=== PATIENT | female | born 1960 | race Caucasian/White ===

== ENCOUNTER 2016-09-21 14:47 | Emergency (ER) | payer BC ==
[~2016-09-21] VITALS: Wt 127.5 kg
[~2016-09-21 14:47] MED LIST: ATIVAN1 MG PO; CELEXA40 MG PO; CITALOPRAM HYDR20 MG PO; HYDROCODONE BIT1 T11 PO; OXYCODONE5 M1 PO
[2016-09-21] MEDS ORDERED: NAPROSYN500 MG PO ×2 (16:32→16:49)
== END 2016-09-21 16:37 | disposition home or self-care (01) ==
LOC: ED 14:47
DX: S93.402A Sprain of unspecified ligament of left ankle, initial encounter (principal); Z88.1 Allergy status to other antibiotic agents; Z88.6 Allergy status to analgesic agent; W50.0XXA Accidental hit or strike by another person, initial encounter; Y93.89 Activity, other specified; Y92.9 Unspecified place or not applicable; Y99.9 Unspecified external cause status

== ENCOUNTER 2017-09-03 23:31 | Emergency (ER) | payer OTHER ==
[~2017-09-03] VITALS: Wt 127.0 kg
[~2017-09-03 23:31] MED LIST changes: +NAPROSYN500 MG PO
== END 2017-09-04 00:46 | disposition home or self-care (01) ==
LOC: ED 23:31
DX: S69.91XA Unspecified injury of right wrist, hand and finger(s), initial encounter (principal); Z88.1 Allergy status to other antibiotic agents; Z88.6 Allergy status to analgesic agent; Z79.899 Other long term (current) drug therapy; X58.XXXA Exposure to other specified factors, initial encounter; Y93.89 Activity, other specified; Y92.89 Other specified places as the place of occurrence of the external cause; Y99.8 Other external cause status

== ENCOUNTER 2018-03-08 23:26 | Emergency (ER) | payer OTHER ==
[~2018-03-08] VITALS: Ht 177.8 cm
[2018-03-09] MEDS ORDERED: EC NAPROSYN500 MG PO (00:12)
== END 2018-03-09 00:39 | disposition home or self-care (01) ==
LOC: ED 23:26
DX: G57.61 Lesion of plantar nerve, right lower limb (principal); I10 Essential (primary) hypertension; Z88.1 Allergy status to other antibiotic agents; Z88.5 Allergy status to narcotic agent; Z88.6 Allergy status to analgesic agent; Z79.899 Other long term (current) drug therapy; W00.2XXA Other fall from one level to another due to ice and snow, initial encounter; Y93.89 Activity, other specified; Y92.520 Airport as the place of occurrence of the external cause; Y99.0 Civilian activity done for income or pay

== ENCOUNTER 2018-08-16 03:06 | Emergency (ER) | payer OTHER, MEDICAID ==
[~2018-08-16] VITALS: Ht 177.8 cm; Wt 127.0 kg
[~2018-08-16 03:06] MED LIST changes: +EC NAPROSYN500 MG PO
[2018-08-16] MEDS ORDERED: PREDNISONE20 M1 PO ×2 (04:24→04:31)
[2018-08-16] MEDS ORDERED: AMOXICILLIN500 M2 PO ×2 (04:24→04:31)
== END 2018-08-16 04:45 | disposition home or self-care (01) ==
LOC: ED 03:06
DX: J20.9 Acute bronchitis, unspecified (principal); I10 Essential (primary) hypertension; M13.861 Other specified arthritis, right knee; Z79.899 Other long term (current) drug therapy; Z88.1 Allergy status to other antibiotic agents; Z88.6 Allergy status to analgesic agent

== ENCOUNTER 2018-10-10 01:49 | Inpatient (IN) | payer OTHER, MEDICAID ==
[2018-10-10] VITALS (7 sets, daily range): BP systolic 112–138; BP diastolic 58–76
[~2018-10-10] VITALS: Ht 175.3 cm; Wt 133.4 kg
--- NOTE | ~2018-10-10 | EKG ---
[place], [place] ELECTROCARDIOGRAM REPORT NAME: CINDY SAENZ UNIT #: [id number] ROOM: 511 DOCTOR: BELL DRAFT REPORT BIRTHDATE: [birth year] [facility] Test Date: 2018-10-10 Test Time: 04:48:05 Pat Name: CINDY SAENZ Department: Room: 511 Gender: F Director Diabetes: Harpreet Quijano : 1960 Requested By: KRISTOPHER GARZA Order Number: [id number] Reading MD: Brandon Muhammad MD Measurements Intervals [place] Rate: 70 P: 73 [place]: 180 QRS: 37 QRSD: 103 T: 23 QT: 418 QTc: 452 Interpretive Statements Sinus rhythm Possible anteroseptal infarct, old Electronically Signed On 10-11-2018 7:57:43 PDT by Brandon Muhammad MD CM:EKGRPT:ELECTROCARDIOGRAM REPORT [id number] KRISTOPHER BARCENAS DRAFT REPORT KRISTOPHER GARZA DO
--- NOTE | ~2018-10-10 | EKG ---
[place], [place] ELECTROCARDIOGRAM REPORT NAME: CINDY SAENZ UNIT #: [id number] ROOM: 511 DOCTOR: BELL DRAFT REPORT BIRTHDATE: [birth year] [facility] Test Date: 2018-10-10 Test Time: 01:55:04 Pat Name: CINDY SAENZ Department: Room: 511 Gender: F Solar Designer/Installer: Harpreet Quijano : 1960 Requested By: KRISTOPHER GARZA Order Number: [id number] Reading MD: Brandon Muhammad MD Measurements Intervals [place] Rate: 68 P: 51 [place]: 176 QRS: 32 QRSD: 101 T: 21 QT: 410 QTc: 437 Interpretive Statements Sinus rhythm Low voltage, precordial leads Probable anteroseptal infarct, old Electronically Signed On 10-11-2018 4:26:48 PDT by Brandon Muhammad MD CM:EKGRPT:ELECTROCARDIOGRAM REPORT [id number] KRISTOPHER BARCENAS DRAFT REPORT KRISTOPHER GARZA DO
--- NOTE | ~2018-10-10 | EKG ---
[place], [place] ELECTROCARDIOGRAM REPORT NAME: CINDY SAENZ UNIT #: [id number] ROOM: 511 DOCTOR: BELL DRAFT REPORT BIRTHDATE: [birth year] [facility] Test Date: 2018-10-10 Test Time: 12:42:07 Pat Name: CINDY SAENZ Department: Room: 511 Gender: F Cage Cashier: : 1960 Requested By: KRISTOPHER GARZA Order Number: [id number] Reading MD: Brandon Muhammad MD Measurements Intervals [place] Rate: 80 P: 65 [place]: 190 QRS: 37 QRSD: 106 T: 26 QT: 410 QTc: 473 Interpretive Statements Sinus rhythm Low voltage, precordial leads Probable anteroseptal infarct, old Electronically Signed On 10-11-2018 8:07:57 PDT by Brandon Muhammad MD CM:EKGRPT:ELECTROCARDIOGRAM REPORT [id number] KRISTOPHER BARCENAS DRAFT REPORT KRISTOPHER GARZA DO
--- NOTE | ~2018-10-10 | CON ---
[place], [place] REPORT OF CONSULTATION NAME: CINDY SAENZ UNIT #: [id number] ROOM: 511 DOCTOR: CATHY TIMMONS BIRTHDATE: [birth year] DOS: 10/10/2018 REQUESTING PHYSICIAN: Dr. Dontae Anne. REASON FOR CONSULTATION: Chest pain. HISTORY OF PRESENT ILLNESS: The patient is a 58-year-old female with a history of diabetes and hyperlipidemia, who presents for evaluation of chest pain. States last week, she had a very brief episode of sharp left-sided chest pain that lasted only a couple of "milliseconds" and went away. Nothing in the interim and then yesterday she began again having similar episodes, not brought on by anything in particular, that was sharp, lasted a couple of seconds and resolved spontaneously. They were happening more frequently throughout the day, so because of her age and history, she wanted to get evaluated. There is no radiation. There were no associated symptoms. 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 She walks about 10 miles per shift. She does not seem to get the pain when she is exerting herself. She has had no prior cardiac issues or cardiac evaluation. Three sets of troponins were negative. EKG showed no evidence of ischemic changes. She is scheduled for an exercise treadmill test. REVIEW OF SYSTEMS: Negative except as described above. The patient states that she previously weighed greater than 500 pounds and has lost quite a bit of weight on her own. PAST MEDICAL HISTORY: Diabetes, hyperlipidemia, obesity and neuropathy. PAST SURGICAL HISTORY: She has had multiple rotator cuff surgeries. SOCIAL HISTORY: She is a nonsmoker. Drinks alcohol a couple times a year. No drug use. 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 FAMILY HISTORY: No history of premature coronary artery disease. ALLERGIES: CODEINE, AZITHROMYCIN, TRAMADOL. HOME MEDICATIONS: Include atorvastatin 10 mg daily, metformin 750 mg daily, gabapentin, citalopram and vitamin D3. PHYSICAL EXAMINATION: VITAL SIGNS: Temperature 97.7, pulse 75, respirations 18, blood pressure 127/68, saturating 95% on room air. GENERAL: She is a middle-aged overweight female who is up walking about the room, in no distress. ENT: Moist mucous membranes. NECK: Supple. JVP normal. No carotid bruits. RESPIRATORY: Lungs are clear. CARDIOVASCULAR: Regular rhythm with normal rate. There are no murmurs. ABDOMEN: Rotund. Positive bowel sounds. Soft, nontender. EXTREMITIES: Warm and well perfused. There is no edema. Moves all [place], [place] REPORT OF CONSULTATION NAME: CINDY SAENZ UNIT #: [id number] ROOM: 511 DOCTOR: CATHY TIMMONS BIRTHDATE: [birth year] extremities. SKIN: No lesions or rashes. NEUROLOGICAL: Nonfocal. LABORATORY DATA: Hemoglobin 14.6, platelets 169, potassium 4.0, creatinine 0.75. Three sets of troponin is less than 0.015. Chest x-ray was negative for any acute process. EKG shows sinus rhythm with a rate of 68 beats per minute with normal axis, normal intervals. Possible old anteroseptal infarct noted. Serial EKG showed no changes. IMPRESSION: 1. Atypical chest pain. 2. Diabetes. 3. Obesity. 4. Hyperlipidemia. RECOMMENDATIONS: 1. No evidence of acute coronary syndrome. Chest pain is somewhat atypical, may be musculoskeletal related to her work. 2. Stress testing is reasonable. 3. Continue present medications. 4. Further recommendations pending outcome of stress test. Thank you for the consultation. Dr. CATHY TIMMONS MD CM:CONSTR:REPORT OF CONSULTATION [id number] 10/10/18 0904 interface
--- NOTE | ~2018-10-10 | ST ---
[place], [place] EXERCISE STRESS TEST REPORT NAME: CINDY SAENZ UNIT #: [id number] ROOM: 511 DOCTOR: CATHY TIMMONS BIRTHDATE: [birth year] DOS: 10/10/2018 INDICATION: Chest pain. PROTOCOL: Exercise treadmill test, [place] protocol. Baseline EKG showed normal sinus rhythm with PAC and PVC with a rate of 64 beats per minute. Baseline blood pressure was 112/70. The patient exercised for a total of 4 minutes 11 seconds achieving a peak heart rate of 149, which is 91% of the predicted maximum. Peak blood pressure was 180/40. Total workload achieved 7 METs below average for age. The patient reported no chest pain. Stress EKG showed no evidence of ischemia and no arrhythmias were noted. Occasional PVCs were observed. IMPRESSION: 1. No evidence of ischemia on stress EKG. 2. Normal blood pressure response to exercise. 3. Normal heart rate recovery. 4. Below average functional capacity. Dr. CATHY TIMMONS MD CM:STRESS:EXERCISE STRESS TEST REPORT [id number] CATHY TIMMONS
[~2018-10-10 01:49] MED LIST changes: +AMOXICILLIN500 M2 PO; +PREDNISONE20 M1 PO
[2018-10-10 02:05] LABS: BASO % 0.5 % (0.0-1.0); EOS # 0.1 10*3/uL (0.0-0.4); EOS % 1.6 % (1.0-4.0); HEMATOCRIT 43.5 % (37.0-47.0); HEMOGLOBIN 14.6 g/dl (12.0-16.0); LYMPH # 2.4 10*3/uL (1.3-4.4); LYMPH % 29.2 % (27.0-41.0); MEAN CELL VOLUME 92.4 fl (81.0-99.0); MEAN CORPUSCULAR HGB CONC 33.6 g/dl (33.0-37.0); MEAN PLATELET VOLUME 11.5 fl (9.6-12.3); MONO # 0.7 10*3/uL (0.1-1.0); MONO % 8.5 % (3.0-9.0); NEUT # 4.9 10*3/uL (2.3-7.9); PLATELET COUNT AUTOMATED 169 10*3/uL (130-400); RED BLOOD COUNT 4.71 10*6/uL (4.10-5.10); RED CELL DISTRI WIDTH 12.9 % (0-14.5); WHITE BLOOD COUNT 8.2 10*3/uL (4.8-10.8)
--- NOTE | 2018-10-10 02:09 | NUR ---
DR GARZA IS AT THE BEDSIDE.
[2018-10-10 02:18] LABS: ACT PARTIAL THROMBO TIME 26.7 SECONDS (20.0-32.1); INTERNATIONAL NORM RATIO 0.9 (2.0-3.5)
[2018-10-10 02:23] LABS: ALBUMIN 3.8 gm/dl (3.1-4.5); ALKALINE PHOSPHATASE 82 U/L (45-117); BUN 17 mg/dl (7-24); CHLORIDE 107 mmol/L (98-107); CREATININE 0.75 mg/dL (0.55-1.02); SGOT/AST 25 IU/L (3-35); SGPT/ALT 32 U/L (12-78); SODIUM 140 mmol/L (136-145); TOTAL PROTEIN 7.1 gm/dL (6.4-8.2)
[2018-10-10 02:24] LABS: TROPONIN I < 0.015 ng/ml (<0.045)
--- NOTE | 2018-10-10 02:47 | NUR ---
UPDATED ON ADMISSION STATUS AND AWAITING ROOM ASSIGNMENT.
--- NOTE | 2018-10-10 02:49 | NUR ---
DR DELUCA IS AT THE BEDSIDE.
--- NOTE | 2018-10-10 03:05 | NUR ---
A 58 year old female, admitted to 5E, under the services of BARBARA Tucker DO with a diagnosis of CHEST PAIN. Chief complaint is CHEST PAIN. Patient arrived via stretcher from ER. Monitor applied. Initial assessment completed. Vital signs taken and recorded. BARBARA TUCKER DO notified of admission to the unit. Orders received. See assessment for past medical history, medications and allergies. Patient and/or family oriented to unit. visitation policy reviewed. Clothing/patient valuable form completed. PATRICK CARLOS
[2018-10-10] MEDS ORDERED: CITALOPRAM20 MG PO (03:30)
[2018-10-10] MEDS ORDERED: ATORVASTATIN CA10 M1 PO (03:30)
[2018-10-10] MEDS ORDERED: METFORMIN HYDR750 MG PO (03:30)
[2018-10-10] MEDS ORDERED: VITAMIN D50000 UNIT PO (03:33)
[2018-10-10] MEDS ORDERED: GABAPENTIN600 MG PO (03:35)
--- NOTE | 2018-10-10 03:40 | NUR ---
DR. DELUCA CONTACTED REGARDING ADMIT TO SERVICE ORDER AND INFORMED THAT MED REC IS UP TO DATE.
--- NOTE | 2018-10-10 03:59 | NUR ---
CARDIO CONSULT COMPLETE AT THIS TIME.
--- NOTE | 2018-10-10 10:10 | NUR ---
INFORMED CONSENT SIGNED FOR STANDARD STRESS TEST WITH DR. TIMMONS. RESTING EKG NSR, HR 69, BP 112/70. COMPLETED 4:11 OF A EDITH PROTOCOL STRESS TEST COMPLETING 1:11 STAGE II, 2.5 MPH/12% GRADE. PEAK HEART RATE OF 149 ACHIEVED WHICH IS 91% PREDICTED MAXIMUM AND A PEAK BP OF 180/40. TEST TERMINATED D/T FATIGUE. RARE PVC'S NOTED WITH NO ST CHANGES. HAS A FAIR EXERCISE TOLERANCE. LAST RECOVERY HR 84, BP 144/58. RETURNEF TO UNIT IN STABLE CONDITION. THIS IS A NEGATIVE STRESS TEST.
[2018-10-11] VITALS: BP 100/35
[2018-10-11 06:48] LABS: PHOSPHOROUS 3.3 mg/dL (2.5-4.9)
[2018-10-11 08:00] VITALS: BP 120/65
--- NOTE | 2018-10-11 11:17 | NUR ---
PATIENT DISCHARGED TO HOME.
--- NOTE | 2018-10-11 12:59 | NUR ---
Pond Supervisor in to talk to patient. Patient states lives at HOME with ALONE. There are OUTSIED steps in the home. Physician: YISEL RED Pharmacy: [facility] health services: NONE Patient's level of ADLs: INDEPENDENT Patient has working utilities: YES DME: C PAP Follow-up physician's appointment after d/c: WILL BE MADE BY HOSPITALIST NURSE DIRECTOR ON DISCHARGE Does patient want to access PORTAL?: NO Discharge plan PT LIVES AT HOME ALONE AND IS INDEPENDENT IN HER CARE. DENIES SHE WILL HAVE ANY NEEDS ON DISCAHRGE. WILL CONTINUE TO FOLLOW. STATES SHE WILL DRIVE HERSELF HOME. . ANA MARIA ROBLERO
== END 2018-10-11 11:17 | disposition home or self-care (01) | DRG 206 ==
LOC: ED 01:49 → 5E 02:38 → EDHOLD 02:38 → 5E 02:52
PROVIDERS: Student in an Organized Health Care Education/Training Program; ADMIT Internal Medicine
DX: M94.0 Chondrocostal junction syndrome [Tietze] (principal); E44.1 Mild protein-calorie malnutrition; Z68.41 Body mass index [BMI] 40.0-44.9, adult; E66.01 Morbid (severe) obesity due to excess calories; R07.89 Other chest pain; F41.9 Anxiety disorder, unspecified; I10 Essential (primary) hypertension; E11.65 Type 2 diabetes mellitus with hyperglycemia; E78.5 Hyperlipidemia, unspecified; E55.9 Vitamin D deficiency, unspecified; F32.9 Major depressive disorder, single episode, unspecified; E11.40 Type 2 diabetes mellitus with diabetic neuropathy, unspecified; Z82.49 Family history of ischemic heart disease and other diseases of the circulatory system; Z83.3 Family history of diabetes mellitus; Z80.7 Family history of other malignant neoplasms of lymphoid, hematopoietic and related tissues; Z88.1 Allergy status to other antibiotic agents; Z88.5 Allergy status to narcotic agent; Z88.6 Allergy status to analgesic agent; Z79.899 Other long term (current) drug therapy

== ENCOUNTER 2018-12-25 02:16 | Emergency (ER) | payer OTHER, MEDICAID ==
[~2018-12-25] VITALS: Ht 175.2 cm; Wt 127.0 kg
[~2018-12-25 02:16] MED LIST changes: +ATORVASTATIN CA10 M1 PO; +CITALOPRAM20 MG PO; +GABAPENTIN600 MG PO; +METFORMIN HYDR750 MG PO; +VITAMIN D50000 UNIT PO
== END 2018-12-25 03:55 | disposition home or self-care (01) ==
LOC: ED 02:16
DX: M17.12 Unilateral primary osteoarthritis, left knee (principal); E78.5 Hyperlipidemia, unspecified; I10 Essential (primary) hypertension; E66.01 Morbid (severe) obesity due to excess calories; E11.40 Type 2 diabetes mellitus with diabetic neuropathy, unspecified; Z88.1 Allergy status to other antibiotic agents; Z88.5 Allergy status to narcotic agent; Z88.8 Allergy status to other drugs, medicaments and biological substances; Z79.899 Other long term (current) drug therapy

== ENCOUNTER 2019-09-28 16:21 | Emergency (ER) | payer OTHER ==
[2019-09-28] MEDS ORDERED: IBU800 MG PO (18:33)
== END 2019-09-28 18:48 | disposition home or self-care (01) ==
LOC: ED 16:21
DX: S93.401A Sprain of unspecified ligament of right ankle, initial encounter (principal); M79.671 Pain in right foot; Z88.1 Allergy status to other antibiotic agents; Z88.6 Allergy status to analgesic agent; Z79.899 Other long term (current) drug therapy; X50.1XXA Overexertion from prolonged static or awkward postures, initial encounter; Y93.89 Activity, other specified; Y92.89 Other specified places as the place of occurrence of the external cause; Y99.8 Other external cause status

== ENCOUNTER 2021-05-24 23:32 | Emergency (ER) | payer SELFPAY ==
[~2021-05-24] VITALS: Ht 177.8 cm; Wt 136.1 kg
[~2021-05-24 23:32] MED LIST changes: +IBU800 MG PO
[2021-05-25 00:27] LABS: BILIRUBIN Negative (Negative); CLARITY Clear (Clear); COLOR Yellow (Yellow); GLUCOSE 1+ (Negative)
[2021-05-25 00:28] LABS: BLOOD 2+ (Negative); KETONE Negative (Negative); LEUKO ESTERASE Trace (Negative); NITRITE Negative (Negative); UROBILINOGEN 0.2 E.U./dl (0.0-1.0)
[2021-05-25 00:35] LABS: BACTERIA 2+; WBC 21-30 wbc/hpf (0-5)
[2021-05-25] MEDS ORDERED: CIPRO500 MG PO (00:41)
== END 2021-05-25 00:58 | disposition home or self-care (01) ==
LOC: ED 23:32
PROVIDERS: Internal Medicine
DX: N39.0 Urinary tract infection, site not specified (principal); Z88.1 Allergy status to other antibiotic agents; Z88.6 Allergy status to analgesic agent; Z79.899 Other long term (current) drug therapy

== ENCOUNTER 2021-09-04 10:54 | Emergency (ER) | payer OTHER ==
[~2021-09-04] VITALS: Ht 177.8 cm; Wt 124.3 kg
[~2021-09-04 10:54] MED LIST changes: +CIPRO500 MG PO
[2021-09-04] MEDS ORDERED: LISINOPRIL2.5 MG PO (11:39)
[2021-09-04] MEDS ORDERED: Motrin,Rufen800 MG PO ×2 (14:16→14:25)
== END 2021-09-04 14:25 | disposition home or self-care (01) ==
LOC: ED 10:54
DX: M76.61 Achilles tendinitis, right leg (principal); Z88.1 Allergy status to other antibiotic agents; Z88.8 Allergy status to other drugs, medicaments and biological substances; Z98.890 Other specified postprocedural states

== ENCOUNTER 2021-09-22 18:28 | Emergency (ER) | payer OTHER ==
[~2021-09-22] VITALS: Ht 177.8 cm; Wt 123.4 kg
[~2021-09-22 18:28] MED LIST changes: +LISINOPRIL2.5 MG PO; +Motrin,Rufen800 MG PO
[2021-09-22] MEDS ORDERED: CEPHALEXIN500 M1 PO (21:39)
[2021-09-22] MEDS ORDERED: HYDROCODONE-AC1 EAC1 PO (21:41)
== END 2021-09-22 21:48 | disposition home or self-care (01) ==
LOC: ED 18:28
DX: S62.637A Displaced fracture of distal phalanx of left little finger, initial encounter for closed fracture (principal); S61.317A Laceration without foreign body of left little finger with damage to nail, initial encounter; Z98.890 Other specified postprocedural states; Z79.899 Other long term (current) drug therapy; Z88.1 Allergy status to other antibiotic agents; Z88.6 Allergy status to analgesic agent; W23.0XXA Caught, crushed, jammed, or pinched between moving objects, initial encounter; Y93.89 Activity, other specified; Y92.69 Other specified industrial and construction area as the place of occurrence of the external cause; Y99.9 Unspecified external cause status

== ENCOUNTER → 2021-10-09 | Outpatient (CLI) | payer OTHER ==
[~2021-10-09] MED LIST changes: +CEPHALEXIN500 M1 PO; +HYDROCODONE-AC1 EAC1 PO
== END | disposition home or self-care (01) ==
LOC: ORTHO 00:42
PROVIDERS: ATTEND Orthopaedic Surgery
DX: S62.637B Displaced fracture of distal phalanx of left little finger, initial encounter for open fracture (principal); X58.XXXA Exposure to other specified factors, initial encounter; Y93.89 Activity, other specified; Y92.89 Other specified places as the place of occurrence of the external cause; Y99.8 Other external cause status

== ENCOUNTER → 2021-11-06 | Outpatient (CLI) | payer OTHER ==
[~2021-11-06] MED LIST changes: +TRULICITY1.5 MG/0.5 SC; +VITAMIN D310 MC1 PO; -VITAMIN D50000 UNIT PO
== END | disposition home or self-care (01) ==
LOC: ORTHO 01:00
PROVIDERS: ATTEND Orthopaedic Surgery
DX: S62.637B Displaced fracture of distal phalanx of left little finger, initial encounter for open fracture (principal); X58.XXXA Exposure to other specified factors, initial encounter; Y93.89 Activity, other specified; Y92.89 Other specified places as the place of occurrence of the external cause; Y99.8 Other external cause status

== ENCOUNTER → 2021-11-17 | Day surgery (SDC) | payer OTHER ==
[2021-11-13 14:03] LABS: BUN 12 mg/dl (7-24); CHLORIDE 107 mmol/L (98-107); CREATININE 0.73 mg/dL (0.55-1.02); POTASSIUM 4.3 mmol/L (3.5-5.1); SODIUM 136 mmol/L (136-145)
[2021-11-13 14:06] VITALS: BP 117/74
[~2021-11-17] VITALS: Ht 177.8 cm; Wt 127.0 kg
[~2021-11-17] MED LIST changes: +SEPTDS PO
[2021-11-17 07:00] VITALS: BP 116/55
[2021-11-17 09:05] VITALS: BP 110/80
[2021-11-17 09:20] VITALS: BP 107/77
[2021-11-17 09:34] VITALS: BP 123/75
[2021-11-18 11:07] LABS: ACID FAST SPEC PROCESSING Tissue Grinding (.)
== END | disposition home or self-care (01) ==
LOC: SDC 11-13 14:00
PROVIDERS: ATTEND Orthopaedic Surgery
DX: S62.637B Displaced fracture of distal phalanx of left little finger, initial encounter for open fracture (principal); M86.642 Other chronic osteomyelitis, left hand; F41.9 Anxiety disorder, unspecified; F32.9 Major depressive disorder, single episode, unspecified; I10 Essential (primary) hypertension; E78.00 Pure hypercholesterolemia, unspecified; E11.40 Type 2 diabetes mellitus with diabetic neuropathy, unspecified; E66.01 Morbid (severe) obesity due to excess calories; W23.0XXA Caught, crushed, jammed, or pinched between moving objects, initial encounter; Y93.89 Activity, other specified; Y92.89 Other specified places as the place of occurrence of the external cause; Y99.8 Other external cause status

== ENCOUNTER → 2022-04-01 | Day surgery (SDC) | payer OTHER ==
[2022-03-30 10:09] LABS: BUN 9 mg/dl (9-23); CHLORIDE 105 mmol/L (98-107); POTASSIUM 4.2 mmol/L (3.4-5.1)
[~2022-04-01] VITALS: Ht 177.8 cm; Wt 130.6 kg
[2022-04-01 07:34] VITALS: BP 127/77
[2022-04-01 08:07] VITALS: BP 93/52
[2022-04-01 08:22] VITALS: BP 102/67
[2022-04-01 08:36] VITALS: BP 107/62
== END | disposition home or self-care (01) ==
LOC: SDC 03-29 10:15
PROVIDERS: ATTEND Orthopaedic Surgery
DX: S62.637A Displaced fracture of distal phalanx of left little finger, initial encounter for closed fracture (principal); L60.0 Ingrowing nail; S67.197A Crushing injury of left little finger, initial encounter; S61.307A Unspecified open wound of left little finger with damage to nail, initial encounter; E11.9 Type 2 diabetes mellitus without complications; F41.9 Anxiety disorder, unspecified; Z88.1 Allergy status to other antibiotic agents; Z88.5 Allergy status to narcotic agent; Z88.8 Allergy status to other drugs, medicaments and biological substances; X58.XXXA Exposure to other specified factors, initial encounter; Y93.89 Activity, other specified; Y92.89 Other specified places as the place of occurrence of the external cause; Y99.8 Other external cause status

== ENCOUNTER → 2022-04-28 | Outpatient (CLI) | payer OTHER | END | disposition home or self-care (01) | LOC: MAMMO 01:40 | PROVIDERS: ATTEND Nurse Practitioner Family | DX: Z12.31 Encounter for screening mammogram for malignant neoplasm of breast (principal) ==

== ENCOUNTER → 2022-07-01 | Outpatient (CLI) | payer OTHER ==
[2022-07-01 09:39] LABS: BASO % 0.5 % (0.0-1.0); EOS # 0.3 10*3/uL (0.0-0.4); HEMATOCRIT 46.7 % (37.0-47.0); LYMPH # 2.1 10*3/uL (1.3-4.4); LYMPH % 32.1 % (27.0-41.0); MEAN CELL VOLUME 91.4 fl (81.0-99.0); MEAN CORPUSCULAR HGB 30.7 pg (27.0-31.0); MEAN CORPUSCULAR HGB CONC 33.6 g/dl (33.0-37.0); MONO # 0.6 10*3/uL (0.1-1.0); MONO % 9.1 % (3.0-9.0); NEUT # 3.5 10*3/uL (2.3-7.9); PLATELET COUNT AUTOMATED 172 10*3/uL (130-400); RED BLOOD COUNT 5.11 10*6/uL (4.10-5.10); WHITE BLOOD COUNT 6.5 10*3/uL (4.8-10.8)
[2022-07-01 10:25] LABS: ALKALINE PHOSPHATASE 70 U/L (46-116); BUN 12 mg/dl (9-23); CHLORIDE 102 mmol/L (98-107); CHOLESTEROL 191 mg/dL (<200); LDL CHOLESTEROL 125 mg/dL (9-159); POTASSIUM 3.5 mmol/L (3.4-5.1); SGPT/ALT 24 U/L (10-49); TOTAL PROTEIN 6.9 gm/dL (6.0-8.0); TRIGLYCERIDES 147 mg/dl (<150)
== END | disposition home or self-care (01) ==
LOC: LAB 08:56
PROVIDERS: ATTEND Nurse Practitioner Family
DX: E11.9 Type 2 diabetes mellitus without complications (principal); I15.2 Hypertension secondary to endocrine disorders; E55.9 Vitamin D deficiency, unspecified

== ENCOUNTER 2022-12-31 23:31 | Emergency (ER) | payer OTHER ==
[2023-01-01] MEDS ORDERED: PREDNISONE20 M1 PO (01:25)
== END 2023-01-01 01:43 | disposition home or self-care (01) ==
LOC: ED 23:31
DX: M79.672 Pain in left foot (principal); F32.A Depression, unspecified; F41.9 Anxiety disorder, unspecified; I10 Essential (primary) hypertension; E78.00 Pure hypercholesterolemia, unspecified; Z88.1 Allergy status to other antibiotic agents; Z88.5 Allergy status to narcotic agent; Z88.8 Allergy status to other drugs, medicaments and biological substances; Z98.890 Other specified postprocedural states

== ENCOUNTER → 2023-03-08 | Outpatient (CLI) | payer OTHER ==
[2023-03-08 11:01] LABS: BASO # 0.1 10*3/uL (0.0-0.1); EOS # 0.2 10*3/uL (0.0-0.4); EOS % 2.8 % (1.0-4.0); HEMATOCRIT 45.2 % (37.0-47.0); LYMPH # 2.4 10*3/uL (1.3-4.4); LYMPH % 39.8 % (27.0-41.0); MEAN CELL VOLUME 90.9 fl (81.0-99.0); MEAN CORPUSCULAR HGB 30.2 pg (27.0-31.0); MEAN CORPUSCULAR HGB CONC 33.2 g/dl (33.0-37.0); MEAN PLATELET VOLUME 10.5 fl (9.6-12.3); MONO # 0.6 10*3/uL (0.1-1.0); MONO % 9.9 % (3.0-9.0); NEUT # 2.8 10*3/uL (2.3-7.9); NEUT % 46.3 % (47.0-73.0); PLATELET COUNT AUTOMATED 186 10*3/uL (130-400); RED BLOOD COUNT 4.97 10*6/uL (4.10-5.10); RED CELL DISTRI WIDTH 13.1 % (0-14.5); WHITE BLOOD COUNT 6.1 10*3/uL (4.8-10.8)
[2023-03-08 11:22] LABS: ALKALINE PHOSPHATASE 68 U/L (46-116); BUN 7 mg/dl (9-23); CHLORIDE 106 mmol/L (98-107); CHOLESTEROL 138 mg/dL (<200); LDL CHOLESTEROL 71 mg/dL (9-159); POTASSIUM 3.8 mmol/L (3.4-5.1); SGPT/ALT 23 U/L (5-49); TOTAL PROTEIN 6.6 gm/dL (6.0-8.0); TRIGLYCERIDES 117 mg/dl (<150)
== END | disposition home or self-care (01) ==
LOC: LAB 01:20
PROVIDERS: ATTEND Nurse Practitioner Family
DX: E11.9 Type 2 diabetes mellitus without complications (principal); I15.2 Hypertension secondary to endocrine disorders; E78.00 Pure hypercholesterolemia, unspecified

== ENCOUNTER 2023-05-29 23:36 | Emergency (ER) | payer OTHER ==
[~2023-05-29] VITALS: Ht 177.8 cm; Wt 117.0 kg
[2023-05-30] MEDS ORDERED: Ketorolac Tromethamine 30 MG/ML VIAL IM ONE (00:35)
[2023-05-30] MEDS ORDERED: METHOCARBAMOL 500 MG TAB PO ONE (00:35)
[2023-05-30] MEDS ORDERED: NAPROXEN250 MG PO (00:41)
[2023-05-30] MEDS ORDERED: METHOCARBAMOL500 M1 PO (00:41)
== END 2023-05-30 01:35 | disposition home or self-care (01) ==
LOC: ED 23:36
DX: S16.1XXA Strain of muscle, fascia and tendon at neck level, initial encounter (principal); F32.A Depression, unspecified; F41.9 Anxiety disorder, unspecified; I10 Essential (primary) hypertension; E78.00 Pure hypercholesterolemia, unspecified; Z88.1 Allergy status to other antibiotic agents; Z88.5 Allergy status to narcotic agent; Z88.8 Allergy status to other drugs, medicaments and biological substances; Z98.890 Other specified postprocedural states; X58.XXXA Exposure to other specified factors, initial encounter; Y93.89 Activity, other specified; Y92.89 Other specified places as the place of occurrence of the external cause; Y99.0 Civilian activity done for income or pay

== ENCOUNTER → 2023-06-25 | Outpatient (CLI) | payer OTHER ==
[~2023-06-25] MED LIST changes: +METHOCARBAMOL500 M1 PO; +NAPROXEN250 MG PO
[2023-06-25 10:19] LABS: BASO # 0.1 10*3/uL (0.0-0.1); EOS # 0.2 10*3/uL (0.0-0.4); EOS % 2.1 % (1.0-4.0); HEMATOCRIT 47.5 % (37.0-47.0); LYMPH # 2.1 10*3/uL (1.3-4.4); LYMPH % 29.4 % (27.0-41.0); MEAN CELL VOLUME 92.1 fl (81.0-99.0); MEAN CORPUSCULAR HGB 30.2 pg (27.0-31.0); MEAN CORPUSCULAR HGB CONC 32.8 g/dl (33.0-37.0); MEAN PLATELET VOLUME 10.7 fl (9.6-12.3); MONO # 0.7 10*3/uL (0.1-1.0); MONO % 9.3 % (3.0-9.0); NEUT # 4.2 10*3/uL (2.3-7.9); NEUT % 57.9 % (47.0-73.0); PLATELET COUNT AUTOMATED 183 10*3/uL (130-400); RED BLOOD COUNT 5.16 10*6/uL (4.10-5.10); RED CELL DISTRI WIDTH 13.1 % (0-14.5); WHITE BLOOD COUNT 7.2 10*3/uL (4.8-10.8)
[2023-06-25 10:28] LABS: URINE CREATININE RANDOM 88.89 mg/dL
[2023-06-25 10:42] LABS: ALKALINE PHOSPHATASE 90 U/L (46-116); BUN 15 mg/dl (9-23); CHLORIDE 109 mmol/L (98-107); CHOLESTEROL 184 mg/dL (<200); LDL CHOLESTEROL 103 mg/dL (9-159); POTASSIUM 4.2 mmol/L (3.4-5.1); SGPT/ALT 22 U/L (5-49); TOTAL PROTEIN 6.8 gm/dL (6.0-8.0); TRIGLYCERIDES 185 mg/dl (<150)
== END ==
LOC: LAB 10:02
PROVIDERS: ATTEND Nurse Practitioner Family
DX: I15.2 Hypertension secondary to endocrine disorders (principal); E78.00 Pure hypercholesterolemia, unspecified; E11.9 Type 2 diabetes mellitus without complications

== ENCOUNTER 2023-09-03 19:08 | Emergency (ER) | payer OTHER ==
[~2023-09-03] VITALS: Ht 177.8 cm; Wt 116.6 kg
[2023-09-03] MEDS ORDERED: METHOCARBAMOL500 M1 PO (19:29)
[2023-09-03] MEDS ORDERED: MELOXICAM5 MG PO (19:29)
[2023-09-03] MEDS ORDERED: Ketorolac Tromethamine 30 MG/ML VIAL IM ONE (19:30)
[2023-09-03] MEDS ORDERED: methylPREDNISolone sod succ 125 MG VIAL IM ONE (19:30)
== END 2023-09-03 21:46 | disposition home or self-care (01) ==
LOC: ED 19:08
DX: S16.1XXA Strain of muscle, fascia and tendon at neck level, initial encounter (principal); M79.602 Pain in left arm; F41.9 Anxiety disorder, unspecified; F32.A Depression, unspecified; E11.9 Type 2 diabetes mellitus without complications; E78.5 Hyperlipidemia, unspecified; I10 Essential (primary) hypertension; E78.00 Pure hypercholesterolemia, unspecified; Z88.1 Allergy status to other antibiotic agents; Z88.5 Allergy status to narcotic agent; Z88.6 Allergy status to analgesic agent; Z98.890 Other specified postprocedural states; X50.0XXA Overexertion from strenuous movement or load, initial encounter; Y93.89 Activity, other specified; Y92.89 Other specified places as the place of occurrence of the external cause; Y99.0 Civilian activity done for income or pay

== ENCOUNTER 2023-11-16 18:31 | Emergency (ER) | payer OTHER ==
[~2023-11-16] VITALS: Ht 177.8 cm; Wt 114.3 kg
[~2023-11-16 18:31] MED LIST changes: +MELOXICAM5 MG PO
[2023-11-16] MEDS ORDERED: diphenhydrAMINE hydrochloride 50 MG/ML VIAL IV ONE (20:10)
[2023-11-16] MEDS ORDERED: Ketorolac Tromethamine 30 MG/ML VIAL IV ONE (20:10)
[2023-11-16] MEDS ORDERED: SODIUM CHLORIDE 0.9% 1,000 ML IV ONE (20:10)
[2023-11-16] MEDS ORDERED: Metoclopramide Hydrochloride 10 MG/2 ML VIAL IV ONE (20:10)
[2023-11-16 20:18] LABS: BASO # 0.1 10*3/uL (0.0-0.1); BASO % 0.7 % (0.0-1.0); EOS # 0.2 10*3/uL (0.0-0.4); HEMATOCRIT 45.8 % (37.0-47.0); LYMPH # 2.3 10*3/uL (1.3-4.4); MEAN CELL VOLUME 91.1 fl (81.0-99.0); MEAN CORPUSCULAR HGB 30.8 pg (27.0-31.0); MEAN CORPUSCULAR HGB CONC 33.8 g/dl (33.0-37.0); MEAN PLATELET VOLUME 10.3 fl (9.6-12.3); MONO # 0.7 10*3/uL (0.1-1.0); MONO % 8.9 % (3.0-9.0); NEUT # 4.3 10*3/uL (2.3-7.9); NEUT % 57.1 % (47.0-73.0); PLATELET COUNT AUTOMATED 198 10*3/uL (130-400); RED BLOOD COUNT 5.03 10*6/uL (4.10-5.10); RED CELL DISTRI WIDTH 13.4 % (0-14.5); WHITE BLOOD COUNT 7.4 10*3/uL (4.8-10.8)
[2023-11-16 20:39] LABS: BUN 10 mg/dl (9-23); CHLORIDE 106 mmol/L (98-107); POTASSIUM 4.3 mmol/L (3.4-5.1)
== END 2023-11-16 21:44 | disposition home or self-care (01) ==
LOC: ED 18:31
PROVIDERS: Physician Assistant Medical
DX: G43.909 Migraine, unspecified, not intractable, without status migrainosus (principal); R42 Dizziness and giddiness; R11.0 Nausea; F32.A Depression, unspecified; F41.9 Anxiety disorder, unspecified; E78.00 Pure hypercholesterolemia, unspecified; I10 Essential (primary) hypertension; Z88.1 Allergy status to other antibiotic agents; Z88.5 Allergy status to narcotic agent; Z98.890 Other specified postprocedural states

== ENCOUNTER 2024-03-10 10:16 | Emergency (ER) | payer OTHER ==
[~2024-03-10] VITALS: Ht 177.8 cm; Wt 117.9 kg
[2024-03-10] MEDS ORDERED: Acetaminophen/Oxycodone 5 MG/325 MG TABLET PO ONE (10:30)
[2024-03-10] MEDS ORDERED: MELOXICAM15 MG PO (10:50)
== END 2024-03-10 11:00 | disposition home or self-care (01) ==
LOC: ED 10:16
DX: S63.91XA Sprain of unspecified part of right wrist and hand, initial encounter (principal); E11.9 Type 2 diabetes mellitus without complications; F32.A Depression, unspecified; F41.9 Anxiety disorder, unspecified; I10 Essential (primary) hypertension; E78.5 Hyperlipidemia, unspecified; Z88.1 Allergy status to other antibiotic agents; Z88.5 Allergy status to narcotic agent; Z79.899 Other long term (current) drug therapy; Z98.890 Other specified postprocedural states; W22.8XXA Striking against or struck by other objects, initial encounter; Y93.89 Activity, other specified; Y92.89 Other specified places as the place of occurrence of the external cause; Y99.8 Other external cause status

== ENCOUNTER 2024-04-26 18:05 | Emergency (ER) | payer OTHER ==
[~2024-04-26] VITALS: Ht 172.7 cm
[~2024-04-26 18:05] MED LIST changes: +MELOXICAM15 MG PO
[2024-04-26] MEDS ORDERED: methylPREDNISolone sod succ 125 MG VIAL IM ONE (18:20)
[2024-04-26] MEDS ORDERED: Ketorolac Tromethamine 30 MG/ML VIAL IM ONE (18:20)
[2024-04-26] MEDS ORDERED: CYCLOBENZAPRINE5 M3 PO (19:24)
== END 2024-04-26 19:43 | disposition home or self-care (01) ==
LOC: ED 18:05
DX: S46.912A Strain of unspecified muscle, fascia and tendon at shoulder and upper arm level, left arm, initial encounter (principal); E11.9 Type 2 diabetes mellitus without complications; M54.2 Cervicalgia; Z88.1 Allergy status to other antibiotic agents; Z88.5 Allergy status to narcotic agent; Z88.8 Allergy status to other drugs, medicaments and biological substances; Z79.899 Other long term (current) drug therapy; Z79.84 Long term (current) use of oral hypoglycemic drugs; Z98.890 Other specified postprocedural states; X50.0XXA Overexertion from strenuous movement or load, initial encounter; Y93.89 Activity, other specified; Y92.098 Other place in other non-institutional residence as the place of occurrence of the external cause; Y99.0 Civilian activity done for income or pay

== ENCOUNTER → 2024-05-22 | Outpatient (CLI) | payer OTHER ==
[~2024-05-22] MED LIST changes: +CYCLOBENZAPRINE5 M3 PO
== END | disposition home or self-care (01) ==
LOC: RESCLI 03:29
PROVIDERS: ATTEND Internal Medicine
DX: F32.9 Major depressive disorder, single episode, unspecified (principal); E11.9 Type 2 diabetes mellitus without complications; J30.9 Allergic rhinitis, unspecified; I10 Essential (primary) hypertension; G47.33 Obstructive sleep apnea (adult) (pediatric); K21.9 Gastro-esophageal reflux disease without esophagitis; E78.5 Hyperlipidemia, unspecified; Z12.4 Encounter for screening for malignant neoplasm of cervix; Z12.31 Encounter for screening mammogram for malignant neoplasm of breast; Z79.899 Other long term (current) drug therapy; Z98.890 Other specified postprocedural states; Z88.8 Allergy status to other drugs, medicaments and biological substances

== ENCOUNTER → 2024-06-08 | Outpatient (CLI) | payer OTHER ==
[2024-06-08 11:42] LABS: BASO # 0.1 10*3/uL (0.0-0.1); BASO % 0.8 % (0.0-1.0); EOS # 0.1 10*3/uL (0.0-0.4); EOS % 2.1 % (1.0-4.0); MEAN CELL VOLUME 89.6 fl (81.0-99.0); MEAN CORPUSCULAR HGB 30.5 pg (27.0-31.0); MEAN PLATELET VOLUME 10.4 fl (9.6-12.3); MONO # 0.6 10*3/uL (0.1-1.0); MONO % 9.9 % (3.0-9.0); NEUT # 3.6 10*3/uL (2.3-7.9); NEUT % 57.3 % (47.0-73.0); PLATELET COUNT AUTOMATED 169 10*3/uL (130-400); RED BLOOD COUNT 5.02 10*6/uL (4.10-5.10); WHITE BLOOD COUNT 6.3 10*3/uL (4.8-10.8)
[2024-06-08 12:18] LABS: ALKALINE PHOSPHATASE 61 U/L (46-116); BUN 13 mg/dl (9-23); CHLORIDE 106 mmol/L (98-107); CHOLESTEROL 184 mg/dL (<200); LDL CHOLESTEROL 117 mg/dL (9-159); POTASSIUM 3.7 mmol/L (3.4-5.1); SGPT/ALT 24 U/L (5-49); TOTAL PROTEIN 6.8 gm/dL (6.0-8.0); TRIGLYCERIDES 121 mg/dl (<150)
== END | disposition home or self-care (01) ==
LOC: LAB 01:05
PROVIDERS: ATTEND Internal Medicine
DX: E11.9 Type 2 diabetes mellitus without complications (principal); F32.9 Major depressive disorder, single episode, unspecified; E78.5 Hyperlipidemia, unspecified

== ENCOUNTER → 2024-06-19 | Outpatient (CLI) | payer OTHER | END | disposition home or self-care (01) | LOC: RESCLI 01:09 | PROVIDERS: ATTEND Student in an Organized Health Care Education/Training Program | DX: E11.9 Type 2 diabetes mellitus without complications (principal); J30.9 Allergic rhinitis, unspecified; I10 Essential (primary) hypertension; E78.5 Hyperlipidemia, unspecified; K21.9 Gastro-esophageal reflux disease without esophagitis; F32.9 Major depressive disorder, single episode, unspecified; G47.33 Obstructive sleep apnea (adult) (pediatric); Z79.899 Other long term (current) drug therapy; Z98.890 Other specified postprocedural states; Z88.8 Allergy status to other drugs, medicaments and biological substances ==

== ENCOUNTER → 2024-09-25 | Outpatient (CLI) | payer BC | END | disposition home or self-care (01) | LOC: RESCLI 01:11 → LAB 03:44 | PROVIDERS: ATTEND Internal Medicine | DX: E11.9 Type 2 diabetes mellitus without complications (principal) ==